=== PATIENT | female | born 1940 | race Caucasian/White ===

== ENCOUNTER 2021-04-27 07:16 | Outpatient (CLI) | payer OTHER ==
[~2021-04-27 07:16] MED LIST: KETO10TA2 PO; LEVSIN/SL0.125 MG SL; ORPH100T PO; PROCARDIA90 MG/BLIS PO; PROTONIX20 MG PO; ZOCOR20 MG PO
== END 2021-04-27 07:19 | disposition home or self-care (01) ==
LOC: NUCLEAR 07:16
PROVIDERS: ATTEND Internal Medicine Cardiovascular Disease
DX: I10 Essential (primary) hypertension (principal); I20.9 Angina pectoris, unspecified; R06.09 Other forms of dyspnea; E11.9 Type 2 diabetes mellitus without complications
CPT/HCPCS: 78452; 93017; A9500; J0153

== ENCOUNTER 2025-02-01 10:00 | Outpatient (CLI) | payer OTHER ==
[~2025-02-01 10:00] MED LIST changes: +ATACAND4 MG; +BENZONATATE200 M1 PO; +MOLNUPIRAVIR (200 MG PO; +SINGULAIR10 MG PO; +ZYRTEC10 MG PO
== END 2025-02-01 10:01 | disposition home or self-care (01) ==
LOC: SONOGRAMA 10:00
PROVIDERS: ATTEND Pathology Anatomic Pathology
DX: D34 Benign neoplasm of thyroid gland (principal); E07.89 Other specified disorders of thyroid; E04.2 Nontoxic multinodular goiter